=== PATIENT | female | born 1975 | race Caucasian/White ===

== ENCOUNTER 2021-04-11 19:22 | Emergency (ER) | payer MEDICARE, SELFPAY ==
[2021-04-11 19:22] VITALS: BP 102/81; PULSE 97; RESP 18; TEMP 37.2; O2SAT 96; BMI 32.8
--- NOTE | 2021-04-11 19:38 | EDS_ITS ---
HPI History of Present Illness Chief Complaint: General Illness Informant: patient Onset/Context/Timing Onset: Days Context: Gradual Onset Narrative Narrative: Patient presents with mild cough and congestion. She developed symptoms on April 05 and had a positive home Covid test on the . Patient and her are both here to get checked out. She is not currently on any medications for Covid. She has mild cough. No significant fever. [facility] Medical History (Updated 04/11/21 @ 20:[address] Josey Nevarez MD) Depression Home Medications escitalopram oxalate [Lexapro] 10 mg PO DAILY 04/11/21 [History Last Taken Unknown] Allergy/AdvReac Type Severity Reaction Status Date / Time phenazopyridine Allergy Anaphylaxis Verified 04/11/21 19:25 [From Pyridium] Sulfa (Sulfonamide Allergy Anaphylaxis Verified 04/11/21 19:25 Antibiotics) codeine AdvReac Vomiting Verified 04/11/21 19:25 erythromycin base AdvReac Hives Verified 04/11/21 19:25 Surgical History (Updated 04/11/21 @ 19:54 by Nataliia Castillo) H/O: hysterectomy Social History Smoking Status: Never smoker ROS ROS ED Constitutional Constitutional ED: Denies chills or fever(s) Eyes Eyes: Denies change in vision ENT ENT ED: Denies sore throat Cardiovascular Cardiovascular: Denies chest pain Respiratory/Chest Respiratory/Chest: Reports cough; Denies dyspnea Gastrointestinal Gastrointestinal: Denies abdominal pain, diarrhea, nausea or vomiting Genitourinary Genitourinary ED: Denies dysuria Musculoskeletal Musculoskeletal: Denies back pain Integumentary Denies rash Neurologic Neurologic: Denies headache(s) or weakness Allergic/Immunologic Allergic/Immunologic ED: Denies urticaria EXAM Physical Exam Const Vital Signs: 04/11/21 19:22 04/11/21 19:52 Temperature 98.9 F Temperature Source Temporal Pulse Rate 97 Respiratory Rate 18 Respiratory Effort Normal Non-Labored Respiratory Pattern Normal Blood Pressure 102/81 H Blood Pressure Mean 88 Pulse Ox 96 Oxygen Delivery Method Room Air Positive well nourished and well developed General Appearance ED: well developed HEENT Reports moist mucous membranes Eyes PERRL and EOMs intact bilaterally Neck supple Chest Wall inspection of chest normal and palpation of chest normal Resp normal respiratory effort and clear to auscultation bilaterally Cardio regular rate and regular rhythm Extremity normal to inspection Neuro oriented x3 Sensorium / Orientation: alert Psych mental status grossly normal Skin no rashes or lesions noted MDM MDM MDM Narrative Medical decision making narrative: Chest x-ray obtained. Because patient did not have copy of her positive Covid test with her and was only home test rapid Covid test obtained here. Lab Data Labs: Rapid Covid: Radiography Chest X-Ray - ED: 1 View, Read by ED Physician, Normal, Heart, Lungs and Mediastinum Diagnostic Testing: Clinical Impression(s) from Imaging Studies Chest X-Ray 04/11/21 19:55 IMPRESSION: Normal x-ray examination of the chest. Electronically Signed: Ronni Soria MD at 20:29 EST Tel , Service support , Treatment and Re-Evaluation Comments:: Chest x-ray per my interpretation shows no focal infiltrate. Radiology rotation also reviewed. Patient is not hypoxic. Her Covid test does return positive. I will send a referral for monoclonal antibodies. At this time she does not require anything other than supportive care at home. Discharge Plan Triage Chief Complaint: General Illness ED Provider: Josey Nevarez Dx/Rx/DC Orders Clinical Impression: COVID-19 Instructions: Coronavirus Disease 2019 (COVID-19): Overview, Coronavirus Disease 2019 (COVID-19): Caring for Yourself or Others Prescriptions: No Action escitalopram oxalate [Lexapro] 10 mg Tablet 10 mg PO DAILY RF: 0 Other Ambulatory Orders: COVID Outpatient Monoclonal Antibody Referral (Routine) Timeframe: 1 Day Facility: [facility] - Location: [facility] Ordered By: Dr. Josey Nevarez Primary Care Provider: Care Physician,No Primary Referrals: Faiza Nunez MD [STAFF PHYSICIAN] - As Needed Care Physician,No Primary [Primary Care Provider] - Disposition Disposition: Home, Self Care
--- NOTE | 2021-04-11 19:55 | RAD_ITS ---
STUDY: X-RAY CHEST REASON FOR EXAM: Female, 45 years old. cough, covid TECHNIQUE: Frontal portable view of the chest COMPARISON: None. FINDINGS: The lungs are clear and expanded. There is no demonstrated pleural abnormality. Normal size heart. Normal mediastinum and edgar. Normal visualized pulmonary arteries. Normal visualized aortic arch and descending thoracic aorta. Normal visualized thoracic spine. Normal visualized ribs, clavicles, and shoulders. There is no demonstrated abnormality of the visualized soft tissue structures of the upper abdomen. RAD/Chest 1 View (Portable) IMPRESSION: Normal x-ray examination of the chest. Electronically Signed: Ronni Soria MD at 20:29 EST Tel , Service support ,
[2021-04-11 20:48] VITALS: PULSE 95; RESP 17; O2SAT 96
== END 2021-04-11 20:49 | disposition home or self-care (01) ==
PROVIDERS: Emergency Provider Emergency Medicine
DX: U07.1 COVID-19 (principal); F32.A Depression, unspecified; Z79.899 Other long term (current) drug therapy
CPT/HCPCS: 71045; 87426; 99282

== ENCOUNTER 2021-04-14 09:52 | Emergency (ER) | payer SELFPAY ==
[2021-04-14 09:53] VITALS: BP 170/156; PULSE 112; RESP 18; TEMP 36.8; O2SAT 94; BMI 34.9
--- NOTE | 2021-04-14 10:30 | EX.ED.DYSGE1 ---
HPI History of Present Illness Chief Complaint: General Illness Narrative Narrative: 45-year-old female on day 9 of COVID-19 presenting with nausea and vomiting. She states he is intermittently been able to hold down some fluids. She states he tried drink Sprite and this made her vomit. She is not having fevers anymore but does have mild headaches. Patient is not significantly short of breath. Patient is day 9 of COVID-19 symptoms and is scheduled for the monoclonal antibodies this afternoon. She does not report any chest pain. PFSH PFS Medical History Depression Home Medications escitalopram oxalate [Lexapro] 10 mg PO DAILY 04/11/21 [History Last Taken Unknown] Allergy/AdvReac Type Severity Reaction Status Date / Time phenazopyridine Allergy Anaphylaxis Verified 04/14/21 09:55 [From Pyridium] Sulfa (Sulfonamide Allergy Anaphylaxis Verified 04/14/21 09:55 Antibiotics) codeine AdvReac Vomiting Verified 04/14/21 09:55 erythromycin base AdvReac Hives Verified 04/14/21 09:55 Surgical History H/O: hysterectomy Social History Smoking Status: Never smoker ROS ROS ED Constitutional Constitutional ED: Denies chills or fever(s) Eyes Eyes: Denies blurry vision or change in vision ENT ENT ED: Denies rhinorrhea or sore throat Cardiovascular Cardiovascular: Denies chest pain or palpitations Respiratory/Chest Respiratory/Chest: Reports cough; Denies dyspnea or dyspnea on exertion Gastrointestinal Gastrointestinal: Reports nausea and vomiting; Denies abdominal pain Genitourinary Genitourinary ED: Denies dysuria or hematuria Musculoskeletal Musculoskeletal: Reports myalgias; Denies arthralgias or neck pain Integumentary Denies Abrasions or rash Neurologic Neurologic: Reports headache(s); Denies paresthesias or weakness EXAM Physical Exam Const Vital Signs: 04/14/21 09:53 Temperature 98.2 F Temperature Source Temporal Pulse Rate 112 H Respiratory Rate 18 Blood Pressure 170/156 H Blood Pressure Mean 160 Pulse Ox 94 Oxygen Delivery Method Room Air Positive well nourished General Appearance ED: NAD; Negative for pallor HEENT Reports moist mucous membranes Negative for trauma Eyes PERRL and EOMs intact bilaterally Resp normal respiratory effort and clear to auscultation bilaterally Cardio regular rate and regular rhythm Extremity normal to inspection General Extremety ED: Negative for tenderness Neuro oriented x3 and CN's II-XII intact bilaterally Sensorium / Orientation: alert Psych mental status grossly normal Skin General Skin Exam: Negative for jaundice or pallor MDM MDM MDM Narrative Medical decision making narrative: Patient currently scheduled for monoclonal antibodies this afternoon. After a lengthy discussion with her about her symptoms of nausea she does express that she would like to have some nausea medicine. She is given a dose of Zofran in the ED. Patient will be given a prescription for this for home. Patient is counseled to start slow with eating and drinking when she starts taking Zofran. She is counseled to make her monoclonal antibody appointment today. Today she is not tachypneic, hypoxic, febrile. She is slightly tachycardic. I believe clinically she is a little bit dehydrated but is amenable to outpatient treatment with antiemetics. Impression: 1. COVID-19 2. Nausea vomiting Discharge Plan Triage Chief Complaint: General Illness ED Provider: Anthony Hernandez Dx/Rx/DC Orders Prescriptions: No Action escitalopram oxalate [Lexapro] 10 mg Tablet 10 mg PO DAILY RF: 0 Primary Care Provider: Care Physician,No Primary
[2021-04-14 10:34] VITALS: BP 130/86; PULSE 99; RESP 17; TEMP 36.8; O2SAT 92
[2021-04-14] MEDS: Ondansetron ODT 4 MG Tablet PO (10:42)
[2021-04-14 10:43] VITALS: BP 130/86; PULSE 90; RESP 17; O2SAT 92
== END 2021-04-14 10:54 | disposition home or self-care (01) ==
LOC: ED 10:50
PROVIDERS: Emergency Provider Student in an Organized Health Care Education/Training Program
DX: U07.1 COVID-19 (principal); R11.2 Nausea with vomiting, unspecified; F32.A Depression, unspecified; Z79.899 Other long term (current) drug therapy
CPT/HCPCS: 99283

== ENCOUNTER 2021-04-14 11:11 | Outpatient (CLI) | payer SELFPAY ==
[2021-04-14 11:17] VITALS: BP 129/92; PULSE 93; RESP 16; TEMP 36.8; O2SAT 95; BMI 31.6
[2021-04-14] MEDS: 0.9% Saline Lock 10 ML Syringe IV (11:45)
[2021-04-14 12:36] VITALS: BP 124/80; PULSE 95; RESP 16; TEMP 38.4; O2SAT 95
[2021-04-14] MEDS: Acetaminophen 325 MG Tablet 650 MG PO (12:47)
[2021-04-14 13:42] VITALS: BP 124/78; PULSE 96; RESP 16; TEMP 36.8; O2SAT 95
== END 2021-04-14 13:43 | disposition home or self-care (01) ==
LOC: MS3OUT 11:20 → MS3 11:21
PROVIDERS: Referring Provider Nurse Practitioner Adult Health; Visit Provider Nurse Practitioner Adult Health
DX: Z23 Encounter for immunization (principal); U07.1 COVID-19
CPT/HCPCS: J7050; M0245; Q0245; A4216

== ENCOUNTER 2021-04-16 17:51 | Emergency (ER) | payer SELFPAY ==
[2021-04-16 17:52] VITALS: BP 127/87; PULSE 105; RESP 16; TEMP 36.2; O2SAT 95; BMI 31.4
--- NOTE | 2021-04-16 18:21 | EDS_ITS ---
HPI History of Present Illness Chief Complaint: General Illness Detail of Chief Complaint: Restless leg syndrome Informant: patient Onset/Context/Timing Onset: Days Context: Gradual Onset Timing: Intermittent Current Severity: Mild Maximum Severity: Mild Narrative Narrative: 45-year-old female recently moved from [facility] to this area currently does not have a primary care physician. Has a history of anxiety and restless leg syndrome. Recently on the was diagnosed with Covid and received monoclonal antibodies on Wednesday. States her anxiety has been worse so has her restless leg syndrome. Denies any calf pain or swelling. No other complaints. Believes that her Covid is improving now that she is at the monoclonal antibodies. Prior similar symptoms: Yes Recent Illness/Hospitalization: No PFSH PFSH Medical History Depression Home Medications escitalopram oxalate [Lexapro] 10 mg PO DAILY 04/11/21 [History Last Taken Unknown] famotidine [Pepcid] 20 mg PO BID #14 tab 04/14/21 [Rx Last Taken Unknown] ondansetron 4 mg PO Q8H PRN PRN #10 tab 04/14/21 [Rx Last Taken Unknown] Allergy/AdvReac Type Severity Reaction Status Date / Time phenazopyridine Allergy Anaphylaxis Verified 04/16/21 17:52 [From Pyridium] Sulfa (Sulfonamide Allergy Anaphylaxis Verified 04/16/21 17:52 Antibiotics) codeine AdvReac Vomiting Verified 04/16/21 17:52 erythromycin base AdvReac Hives Verified 04/16/21 17:52 Surgical History H/O: hysterectomy Social History Smoking Status: Never smoker ROS ROS ED ROS Narrative Covid symptoms resolving. Review of Systems ROS Unobtainable: Denies due to encephalopathy Constitutional Constitutional ED: Denies fever(s) Eyes Eyes: Denies change in vision ENT ENT ED: Denies ear pain Cardiovascular Cardiovascular: Denies chest pain Respiratory/Chest Respiratory/Chest: Reports cough; Denies dyspnea Gastrointestinal Gastrointestinal: Denies abdominal pain, diarrhea, nausea or vomiting Genitourinary Genitourinary ED: Denies dysuria Musculoskeletal Musculoskeletal: Denies myalgias Integumentary Denies rash Neurologic Neurologic: Denies headache(s) Psychiatric Psychiatric: Denies depression Endocrine Endocrinology: Denies polyuria Allergic/Immunologic Allergic/Immunologic ED: Denies urticaria EXAM Physical Exam Narrative Exam Narrative: 45-year-old female no acute distress vital signs stable afebrile. Pulse ox 95% on room air. Exam normal. Lungs clear. Heart regular rate and rhythm. Abdomen soft. Moving all 4 extremities. Calves are nontender without edema. Normal motor strength and sensation and range of motion both lower extremities. Const Vital Signs: 04/16/21 17:52 04/16/21 18:10 Temperature 97.2 F L Temperature Source Temporal Pulse Rate 105 H Respiratory Rate 16 Respiratory Effort Normal Non-Labored Respiratory Pattern Normal Blood Pressure 127/87 H Blood Pressure Mean 100 Pulse Ox 95 Oxygen Delivery Method Room Air Positive well nourished and well developed; Negative for obese, cachectic, contractures or unkempt General Appearance ED: well developed and NAD; Negative for unkempt, cachectic, contractures, cyanotic, diaphoretic or pallor Nutritional Appearance: Negative for cachectic or obese HEENT Reports moist mucous membranes Negative for trauma or tenderness Eyes PERRL and EOMs intact bilaterally Neck no lymphadenopathy, supple and no JVD General: Negative for tenderness Chest Wall inspection of chest normal and palpation of chest normal Resp normal respiratory effort and clear to auscultation bilaterally Effort and Inspection: Negative for pain with movement Auscultation: Negative for rales, rhonchi or wheezes Cardio regular rate, S1 normal heart sound, S2 normal heart sound and no murmurs GI normal to inspection, nondistended, normoactive bowel sounds, non-tender and non-distended Palpation: soft Back/Spine no CVA tenderness General Back: Negative for CVA tenderness Cervical Spine: Negative for cervical spine tenderness Extremity normal to inspection General Extremety ED: Negative for edema or tenderness General Extremity: Negative for edema Neuro oriented x3 and CN's II-XII intact bilaterally Sensorium / Orientation: alert; Negative for orientation impaired, lethargic or stuporous Motor Exam: strength 5/5 throughout Psych mental status grossly normal Appearance: Negative for unkempt Mood & Affect: Negative for depressed or tearful Skin no rashes or lesions noted and no wounds General Skin Exam: Negative for jaundice or pallor MDM MDM MDM Narrative Medical decision making narrative: Middle-aged female with increased anxiety. She will be referred to her primary care physician. I will write her for a total of 5 Ativan along with as needed. Discharge Plan Triage Chief Complaint: General Illness ED Provider: Robby Valera Dx/Rx/DC Orders Clinical Impression: COVID-19, Anxiety, Restless leg syndrome Instructions: ED Anxiety Reaction Prescriptions: No Action escitalopram oxalate [Lexapro] 10 mg Tablet 10 mg PO DAILY RF: 0 ondansetron 4 mg tablet,disintegrating 4 mg PO Q8H PRN PRN (Reason: Nausea) Qty: 10 RF: 0 famotidine [Pepcid] 20 mg tablet 20 mg PO BID Qty: 14 RF: 0 Primary Care Provider: Care Physician,No Primary Referrals: Care Physician,No Primary [Primary Care Provider] - Ubaldo Arredondo MD [STAFF PHYSICIAN] - As soon as possible
== END 2021-04-16 18:32 | disposition home or self-care (01) ==
PROVIDERS: Emergency Provider Emergency Medicine
DX: U07.1 COVID-19 (principal); F41.9 Anxiety disorder, unspecified; F32.A Depression, unspecified; G25.81 Restless legs syndrome; Z79.899 Other long term (current) drug therapy
CPT/HCPCS: 99282